=== PATIENT | male | born 1965 | race Caucasian/White ===

== ENCOUNTER → 2020-10-04 14:50 | Outpatient (CLI) | payer OTHER, SELFPAY ==
[2020-10-04 15:35] LABS: COVID19 -Nasal RAPID Negative (Negative)
== END ==
PROVIDERS: Visit Provider Family Medicine Sleep Medicine
DX: Z01.812 Encounter for preprocedural laboratory examination (principal); Z20.828 Contact with and (suspected) exposure to other viral communicable diseases
CPT/HCPCS: 87635; C9803

== ENCOUNTER → 2021-02-14 09:11 | Outpatient (CLI) | payer OTHER, SELFPAY ==
[2021-02-14 13:31] LABS: COVID19 -Nasal RAPID Negative (Negative)
== END ==
PROVIDERS: Visit Provider Family Medicine Sleep Medicine
DX: Z20.822 Contact with and (suspected) exposure to COVID-19 (principal)
CPT/HCPCS: 87635; C9803

== ENCOUNTER → 2023-01-03 08:12 | Outpatient (CLI) | payer OTHER, SELFPAY ==
--- NOTE | 2023-01-03 | DI.NM.S_ITS ---
PROCEDURE: NM MAYI PERF SPECT REST & STR Rest and exercise myocardial perfusion SPECT with gated imaging and ejection fraction RADIOPHARMACEUTICAL: 24.9 mCi Tc-99m sestamibi IV at rest and 27.2 mCi Tc-99m sestamibi IV at peak exercise. A two day-protocol was performed. INDICATIONS: Unspecified right bundle-branch block TECHNIQUE: Radiopharmaceutical was injected at peak stress test, and also at rest. SPECT images were obtained. SPECT myocardial perfusion images were displayed in short axis, horizontal long axis, and vertical long axis views. Gated images were reviewed using PiCloud software. COMPARISON: None. CARDIAC STRESS: A standard Richard treadmill exercise tolerance test was performed by the patient under the supervision of an attending staff. The patient exercised for 7 minutes and 48 seconds; functional aerobic impairment (HENRY) is +12%. Hemodynamic data: There is normal blood pressure and heart rate response to exercise stress. Patient achieved 93% of maximum predicted heart rate at peak exercise. Symptoms: Patient denied chest pain during exercise. EKG: No diagnostic EKG changes of ischemia; no ectopy. FINDINGS: Raw data: There is good myocardial labeling by radiotracer. No significant motion artifacts. Siuw-jj-kxiic ratio is 0.28 (normal is less than 0.38 for sestamibi tracer, and less than 0.50 for thallium tracer). Left ventricle function: Gated images demonstrate normal left ventricle wall thickening. No segmental wall motion abnormality. No transient ischemic dilation; TID is 0.86 (normal less than 1.3). The left ventricle resting end-diastolic volume is 112 mL. Left ventricle stress ejection fraction is 70%; normal values are above 45%. Myocardial perfusion: Moderately intense fixed inferior wall defect that essentially resolves with prone imaging, suggesting likely diaphragmatic attenuation. No definite prior infarction and no ischemia. IMPRESSION: Low risk, probably normal treadmill nuclear stress test. 1) Moderately intense fixed inferior wall defect that essentially resolves with prone imaging, suggesting likely diaphragmatic attenuation. No definite prior infarction and no ischemia. 2) Normal left ventricular size, wall motion, and systolic function (EF post stress 70%). 3) No diagnostic ST changes with exercise. 4) No angina during the study. 5) Slightly reduced exercise capacity (8.6METs, HENRY +12%). Target heart rate achieved. Appropriate BP response to exercise. 6) No prior nuclear stress test available for comparison. Dictated by: Cristobal Flores MD on 01/04/2023 at 12:57 Approved by: Cristobal Flores MD on 01/04/2023 at 13:00
== END ==
PROVIDERS: PCP Student in an Organized Health Care Education/Training Program; Referring Provider Internal Medicine Cardiovascular Disease; Visit Provider Internal Medicine Cardiovascular Disease
DX: I45.10 Unspecified right bundle-branch block (principal)
CPT/HCPCS: 78452; 93017; A9502

== ENCOUNTER 2023-09-20 10:52 | Day surgery (SDC) | payer OTHER, SELFPAY ==
[2023-09-18 09:51] VITALS: BMI 39.5
[2023-09-20] VITALS (7 sets, daily range): BP systolic 122–158; BP diastolic 80–95; PULSE 80–95; RESP 12–18; TEMP 36.2–36.6; O2SAT 94–98; BMI 38.0
[2023-09-20] MEDS: LACTATED RINGERS 1,000 ML 42 ML IV (11:24)
--- NOTE | 2023-09-20 11:41 | P.HP_ITS ---
History of Present Illness History of Present Illness Date Patient Seen: 09/20/23 Time Patient Seen: 11:42 Chief complaint: SDC Narrative: 57-year-old male last seen in clinic 06/13/2023, known severe PARTH, presents for septoplasty and inferior turbinate reduction. No interval health changes, he did obtain the full face CPAP mask as directed and has been using it at least as tolerated. He understands the severe importance of using it with any sleep in the postoperative period. No recent cough cold or fever. He stopped his baby aspirin 10 days prior to surgery. [facility] Medical History Intolerance of continuous positive airway pressure (CPAP) ventilation Chronic low back pain Osteoarthritis involving multiple joints on both sides of body Morbid obesity with body mass index (BMI) of 40.0 to 49.9 Hyperlipidemia Hypertension GERD (gastroesophageal reflux disease) Snoring Fatigue due to sleep pattern disturbance Obstructive sleep apnea, adult Psoriasis Chronic seasonal allergic rhinitis Surgical History History of carpal tunnel release (2021) Family History Father Loud snoring Hypertension Heart disease Depression Anxiety Alcohol abuse Substance abuse Mother Sleep apnea Insomnia Obesity Depression Anxiety Alcohol abuse Family/Other Sleep apnea Insomnia Depression Alcohol abuse Anxiety Substance abuse Social History household members: spouse Smoking Status: Former smoker alcohol intake: current substance use type: does not use Meds Home Medications and Allergies Home Medications Medication Instructions Recorded Confirmed Type aspirin 81 mg chewable tablet 81 mg PO QDAY ##0 08/14/16 09/20/23 History omeprazole 20 mg capsule,delayed 20 mg PO QDAY ##0 08/14/16 09/20/23 History release simvastatin 20 mg tablet 20 mg PO HS ##0 08/14/16 09/20/23 History celecoxib 100 mg capsule (Celebrex) 100 mg PO BID 09/16/20 01/07/21 History fluocinonide 0.05 % topical gel 1 applic topical BID-QID PRN Rash 09/16/20 09/20/23 History lisinopril 10 mg tablet 10 mg PO DAILY 09/16/20 09/20/23 History metformin 500 mg tablet 500 mg PO DAILY 09/16/20 09/20/23 History Allergies Allergy/AdvReac Type Severity Reaction Status Date / Time mold Allergy Mild runny Verified 09/20/23 11:08 nose, congestion, watery eyes pet dander Allergy Mild runny Uncoded 09/16/20 15:01 nose, congestion, watery eyes No Known Allergies Allergy Uncoded 01/16/18 12:39 Review of Systems Review of Systems Narrative: Negative except as listed in the HPI Exam Vital Signs (past 8 hours): - 09/20/23 11:26 Temperature 97.8 F Pulse Rate 84 Respiratory Rate 18 Blood Pressure 127/85 Pulse Oximetry 94 Oxygen Delivery Method Room Air Oxygen Delivery Method Room Air Narrative Exam Narrative: Well-developed elevated BMI, heart regular rate and rhythm without murmur, lungs clear to auscultation bilaterally Assessment & Plan Assessment & Plan narrative: Assessment: PARTH, nasal airway obstruction, septal deviation, inferior turbinate hypertrophy Plan: Following discussion of the material risks benefits complications and alternatives, the patient elected to proceed.
--- NOTE | 2023-09-20 11:41 | PM.PREOP ---
Pre-operative Note Interval Note History & Physical reviewed/Exam performed by Physician: Yes Changes to H&P: No
--- NOTE | 2023-09-20 11:43 | P.OP_ITS ---
Operative Date/Time/Diagnoses Date of procedure: 09/20/23 Time of procedure: 13:18 Pre-op diagnosis: PARTH, nasal obstruction, septal deviation, inferior turbinate hypertrophy Post-op diagnosis: same Procedure & Clinicians Procedure: 1. Septoplasty 2. Bilateral inferior turbinate reduction via intramural cautery Same procedure as scheduled: Yes Indications: 57 Year old with the above diagnoses incompletely managed with medical therapy presents for the above procedure. Following discussion of the material risks benefits complications and alternatives, the parents elected to proceed. Surgeon: John Santiago Click Yes if Unassisted: Yes Anesthesia Type: General and Local Operative Notes Findings: 2+ left anterior superior septal deviation, generalized RIGHT deviation 2+ including low spur. [id number]-left inferior turbinate hypertrophy. Quadrilateral cartilage left intact due to poor pre-op tip support. No flap perforations. Estimated Blood Loss (mL): 50 Procedure in detail: Following identification and confirmation of consent as well as preoperative Afrin nasal spray, the patient was brought to the operating room suite and placed in the supine position. General endotracheal anesthesia was administered. I infiltrated the septum widely bilaterally with 2% lidocaine 1 100,000 epinephrine followed by temporary packing with cotton with Afrin and 4% lidocaine. Following sterile prep and drape, the packing was removed and I performed a right jennifer-transfixion incision, elevated the right mucoperich ondrial and mucoperiosteal flap. I disarticulated near the bony/cartilaginous junction and elevated the left mucoperiosteal flap. Deviated portions of the perpendicular plate of the ethmoid and vomer were resected. The residual quadrilateral cartilage was further straightened by trimming it inferiorly as well as reducing the maxillary crest. The hemitransfixion incision was closed with interrupted 5 0 chromic followed by a running 4 0 plain gut mattress suture to reapproximate the septal flaps. At case completion, Ognzales air channel silastic splints were placed bilaterally, sutured anteriorly with a single 4 0 nylon. The head of each inferior turbinate had been previously infiltrated with additional local anesthetic and a 25 gauge spinal needle was used to impale the length of the turbinate, with cautery on a setting of 15 activated on slow withdrawal over 2 passes. The turbinates were then outfractured. The procedure completed, sponge and needle counts were correct and the patient was extubated in the operating room and taken to recovery room in stable condition without known complication. Complications: none Post-operative Condition: stable Disposition: same day surgery Plan for aftercare: Nasal saline every hour while awake, begin irrigations t.i.d. tomorrow if desired. Polysporin to the nostrils at all times, Tylenol alternating with Advil for pain control, oxycodone for breakthrough pain. Elevate head of bed, no nose blowing, no straining for 2 weeks. Ice directly under the nose on the upper lip has tolerated 24-48 hours at a minimum. Follow-up in 1 week for nasal splint removal. Use CPAP at all times while asleep.
--- NOTE | 2023-09-20 12:17 | SUR.OPER ---
Supine on padded OR bed, head on pillow, arms padded and tucked at sides, legs uncrossed, safety belt at thigh, tape over blanket over lower legs .
[2023-09-20] MEDS: LIDOCAINE 2% W/EPI INJ 20 ML INJ (12:21)
[2023-09-20] MEDS: OXYMETAZOLINE NASAL SPRAY 30 ML 2 SPRAYS NASAL (12:26)
[2023-09-20] MEDS: BACITRACIN OINT 0.9 GM PCKT 1 APPLIC TOP (12:26)
[2023-09-20] MEDS: LIDOCAINE 4% SOLN 50 ML 20 ML TOP (12:26)
[2023-09-20] MEDS: ACETAMINOPHEN IV 1,000 MG/100 ML VIAL 400 MG IV (12:45)
[2023-09-20] MEDS: OXYCODONE IR 5 MG TABLET PO ×2 (13:40→14:05)
== END 2023-09-20 14:13 | disposition home or self-care (01) ==
PROVIDERS: PCP Student in an Organized Health Care Education/Training Program; Referring Provider Otolaryngology; Visit Provider Otolaryngology
PROC: (CPT 30520; principal; 2023-09-20 12:00)
DX: J34.2 Deviated nasal septum (principal); J34.3 Hypertrophy of nasal turbinates; J98.8 Other specified respiratory disorders; G47.33 Obstructive sleep apnea (adult) (pediatric)
CPT/HCPCS: 30520; 30802; J0131; J0330; J1100; J1170; J2250; J2405; J2704; J3010

== ENCOUNTER 2024-10-27 09:32 | Day surgery (SDC) | payer OTHER, SELFPAY ==
--- NOTE | 2024-10-27 | PATH_ITS ---
[facility] Accession Number: [id number] No. of containers..02 Tissue . 01 Material submitted: . PART A: colon - TRANSVERSE POLYP PART B: colon - SIGMOID POLYP . 01 Diagnosis: Part A: TRANSVERSE POLYP: Tubular adenoma. . Part B: SIGMOID POLYP: Colonic mucosa with benign lymphoid aggregate. No neoplasm identified. STO 10/28/20241901 Local . 01 Electronically signed: . Oskar Norton MD, Pathologist NPI- [id number] . 01 Gross description: . Part A: TRANSVERSE POLYP: Received in formalin is 1 fragment(s) of bustillo, soft tissue measuring 0.3 x 0.2 x 0.2 cm submitted entirely in 1 cassette(s) . Part B: SIGMOID POLYP: Received in formalin is 1 fragment(s) of bustillo, soft tissue measuring 0.5 x 0.3 x 0.3 cm submitted entirely in 1 cassette(s) /DEJAH 10/28/20241901 Local . 01 Pathologist provided ICD-10: D12.3, K63.89 . 01 CPT . 081412, 582641 Specimen Comment: A courtesy copy of this report has been sent to Pathology Performed at: [address] [facility], [place], [place] [id number] MD Oskar Norton MD Phone: [phone]
[2024-10-27 10:06] VITALS: BP 132/88; PULSE 91; RESP 18; TEMP 36.6; O2SAT 94
[2024-10-27] MEDS: SODIUM CHLORIDE 0.9% 1,000 ML 150 ML IV (10:13)
--- NOTE | 2024-10-27 10:51 | PM.HP.IH.1 ---
History of Present Illness History of Present Illness Date Patient Seen: 10/27/24 Time Patient Seen: 10:51 Chief complaint: SDC Narrative: 58-year-old white male, normal colonoscopy 10 years ago, not a candidate for noninvasive screening due to intermittent bleeding hemorrhoids. Otherwise, no symptoms no changes in health. [facility] Medical History (Updated 10/27/24 @ 10:52 by Abundio Cardoza MD) Colon cancer screening (10/27/24) Intolerance of continuous positive airway pressure (CPAP) ventilation Chronic low back pain Osteoarthritis involving multiple joints on both sides of body Morbid obesity with body mass index (BMI) of 40.0 to 49.9 Hyperlipidemia Hypertension GERD (gastroesophageal reflux disease) Snoring Fatigue due to sleep pattern disturbance Obstructive sleep apnea, adult Psoriasis Chronic seasonal allergic rhinitis Surgical History History of carpal tunnel release (2021) Family History Father Loud snoring Hypertension Heart disease Depression Anxiety Alcohol abuse Substance abuse Mother Sleep apnea Insomnia Obesity Depression Anxiety Alcohol abuse Family/Other Sleep apnea Insomnia Depression Alcohol abuse Anxiety Substance abuse Social History household members: spouse Smoking Status: Former smoker alcohol intake: current substance use type: does not use Meds Home Medications and Allergies Home Medications Medication Instructions Recorded Confirmed Type aspirin 81 mg chewable tablet 81 mg PO QDAY ##0 08/14/16 10/27/24 History omeprazole 20 mg capsule,delayed 20 mg PO QDAY ##0 08/14/16 10/27/24 History release simvastatin 20 mg tablet 20 mg PO HS ##0 08/14/16 10/27/24 History celecoxib 100 mg capsule (Celebrex) 100 mg PO BID 09/16/20 10/27/24 History fluocinonide 0.05 % topical gel 1 applic topical BID-QID PRN Rash 09/16/20 10/27/24 History lisinopril 10 mg tablet 10 mg PO DAILY 09/16/20 10/27/24 History metformin 500 mg tablet 500 mg PO DAILY 09/16/20 10/27/24 History sodium,potassium,mag sulfates 17.5 See Rx Instructions PO .COMPLEX 10/09/24 10/27/24 Rx gram-3.13 gram-1.6 gram oral soln #354 mL (Suprep Bowel Prep Kit) Allergies Allergy/AdvReac Type Severity Reaction Status Date / Time cat dander Allergy Mild runny Verified 09/20/23 12:23 nose, congestion, watery eyes dog dander Allergy Mild runny Verified 09/20/23 12:23 nose, congestion, watery eyes mold Allergy Mild runny Verified 09/20/23 11:08 nose, congestion, watery eyes Review of Systems Review of Systems ROS: Yes All systems reviewed with the patient and are negative except as otherwise documented Exam Vital Signs (past 8 hours): - 10/27/24 10:06 Temperature 98 F Pulse Rate 91 H Respiratory Rate 18 Blood Pressure 132/88 Pulse Oximetry 94 Oxygen Delivery Method Room Air Oxygen Delivery Method Room Air Narrative Exam Narrative: Gen: NAD, sitting comfortably in bed, appears well HEENT: Sclera are anicteric, head is normocephalic and atraumatic, trachea is midline. CV: RRR, no JVD Resp: clear to auscultation bilaterally, equal chest wall movement bilaterally Abd: soft, nontender, normoactive bowel sounds Ext: no edema, full range of motion Neuro: Cranial nerves II-XII grossly intact, no focal deficits Skin: No erythema or ecchymosis Assessment & Plan Assessment and plan (1) Colon cancer screening: Status: Acute Assessment & Plan narrative: Patient presents for colonoscopy Risks, benefits, alternatives to colonoscopy explained, including but not limited to bowel perforation or other serious complication requiring surgery at less than 1 in 5000 colonoscopies, abdominal pain, cramping or bleeding and less than 1% of colonoscopies, and the chances that we find a diagnosis that would require further intervention of about 2%. Patient agrees to proceed. Time-Based Coding :: [TOTAL MINUTES] spent with patient and on the chart (including review of chart, obtaining history, exam, reviewing outside data, placing orders, documenting exam and treatment plan, and counseling patient) on [DATE]. [employer] Document charge(s): No
--- NOTE | 2024-10-27 11:24 | PM.OP.COLON ---
Operative Date/Time/Diagnoses Date of procedure: 10/27/24 Time of procedure: 11:24 Pre-op diagnosis: Colon screening Post-op diagnosis: other (Polyps x2) Procedure & Clinicians Study performed: Colonoscopy with cold snare polypectomy x2 Same procedure as scheduled: Yes Indications: Colon screening Surgeon: Abundio Cardoza Procedure Notes SCOAP/Timeout: Performed Procedure in detail: Time-out was performed. Mac was induced. Patient was placed in left lateral decubitus position. The perineum was inspected without any gross abnormality. Lubricated pediatric colonoscope was inserted and advanced to the cecum. The terminal ileum was intubated. The colonoscope was withdrawn slowly inspecting the circumference of the colon. Polyp was noted in the transverse colon and sigmoid colon. Cold snare polypectomy was used to completely remove both polyps. They were retrieved. Very small polyps may have been missed, prep quality was adequate. Retroflexed view of the rectum showed large prolapsed, grade 4, nonbleeding internal hemorrhoids. The scope was withdrawn the patient was taken to PACU in good condition. Scope withdrawal time: 14 Sedation minutes: 20 Findings: divertiulosis, internal hemorrhoids and polyp(s) Specimen(s): other (1. Transverse colon polyp 2. Sigmoid colon polyp) Complications: none Impression: Colon polyps Post-procedure Recommendations: Colonoscopy in 5 years (Next colonoscopy in 7 years) Follow up: as needed Disposition: PACU
[2024-10-27 11:27] VITALS: BP 118/81; PULSE 86; RESP 19; TEMP 36.4; O2SAT 95
[2024-10-27 11:33] VITALS: BP 128/85; PULSE 84; RESP 15; TEMP 36.3; O2SAT 94
[2024-10-27 11:36] VITALS: BP 129/79; PULSE 86; RESP 20; TEMP 36.8; O2SAT 94
== END 2024-10-27 11:50 | disposition home or self-care (01) ==
PROVIDERS: PCP Nurse Practitioner Family; Referring Provider Surgery; Visit Provider Surgery
PROC: 0DJD8ZZ Inspection of Lower Intestinal Tract, Via Natural or Artificial Opening Endoscopic (ICD-10-PCS; CPT 45378; principal; 2024-10-27 10:30)
DX: Z12.11 Encounter for screening for malignant neoplasm of colon (principal); D12.3 Benign neoplasm of transverse colon; K63.5 Polyp of colon; K57.30 Diverticulosis of large intestine without perforation or abscess without bleeding; K64.3 Fourth degree hemorrhoids; E66.01 Morbid (severe) obesity due to excess calories; I10 Essential (primary) hypertension; E78.5 Hyperlipidemia, unspecified; K21.9 Gastro-esophageal reflux disease without esophagitis; G47.33 Obstructive sleep apnea (adult) (pediatric); E11.9 Type 2 diabetes mellitus without complications; Z79.84 Long term (current) use of oral hypoglycemic drugs; Z87.891 Personal history of nicotine dependence
CPT/HCPCS: 45385; J2704